=== PATIENT | female | born 2000 | race Caucasian/White ===

== ENCOUNTER → 2020-02-13 13:34 | Outpatient (BNVA) | payer MEDICAID, SELFPAY | PROVIDERS: Visit Provider Urology | DX: Z76.89 Persons encountering health services in other specified circumstances (principal) ==

== ENCOUNTER 2021-08-22 15:14 | Outpatient (REF) | payer OTHER, SELFPAY ==
--- NOTE | ~2021-08-22 | US_ITS ---
EXAMINATION: US SOFT TISSUE NECK CLINICAL INFORMATION: Swelling, mass and lump x 2 months. COMPARISON: None TECHNIQUE: Ultrasound of the neck soft tissues, right lateral neck midline, proximal to shoulder, is performed with high-frequency duncan-scale imaging and color Doppler. FINDINGS: RIGHT LATERAL NECK: There are small lymph nodes seen along the right lateral neck level V. The lymph nodes measure 1.3 x 0.5 x 0.8, 1.1 x 0.3 x 0.9 cm and 1.3 x 0.4 x 0.7 cm. They have normal lymph node characteristics and correspond to the patient's palpable areas. US/US soft tiss head and/or neck IMPRESSION: Small scattered lesions in the right neck level V correspond to benign characteristics of lymph node by ultrasound.
== END 2021-08-22 15:15 | disposition home or self-care (01) ==
LOC: HO.HMGCX 15:14
PROVIDERS: Visit Provider Registered Nurse
DX: R22.1 Localized swelling, mass and lump, neck (principal)
CPT/HCPCS: 76536